=== PATIENT | female | born 2000 | race Caucasian/White ===

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

== ENCOUNTER 2025-07-20 11:58 | Emergency (ER) | payer OTHER, SELFPAY ==
[2025-07-20 12:48] VITALS: BP 101/75; PULSE 83; RESP 16; TEMP 36.4; O2SAT 100
--- NOTE | 2025-07-20 12:53 | ED.SKABFB ---
HPI - Skin/Abscess/Foreign Bdy General Chief complaint: Skin/Abscess/Foreign Body Stated complaint: ringworm Time Seen by Provider: 07/20/25 13:00 Source: patient Mode of arrival: ambulatory Limitations: no limitations History of Present Illness HPI narrative: Chiquis is a 25-year-old female patient presenting to the clinic today with complaints of ring that is spreading. She reports she was seen by a provider 2 weeks ago and diagnosed with a tinea corpus infection to the forehead. She reports she has been using topical treatment for that but now the rash is spreading to her arms, neck, chest, and abdomen. States is mildly itchy nonpainful Related Data Home Medications ?Medication ?Instructions ?Recorded ?Confirmed ?Last Taken ?Type medroxyprogesterone IM 07/20/25 Unknown History Allergies Allergy/AdvReac Type Severity Reaction Status Date / Time Penicillins Allergy Rash Verified 07/20/25 12:52 Review of Systems Review of Systems: Pertinent positives per HPI. Patient denies any fever, chills, headache, visual changes, dizziness, cough, runny nose, sore throat, shortness of breath, chest pain, palpitations, nausea, vomiting, diarrhea, constipation, abdominal pain, or any urinary issues. PMFSH Comments At the time of my signature, I reviewed and agree with the nursing past medical, surgical, social, and family history. There is no relevant family history pertinent to the patient complaint. Exam Narrative: General: Well-developed, well nourished, in no apparent distress Head: Normocephalic, atraumatic. Cardio: Regular rate and rhythm, s1 and s2 normal, no murmur appreciated. Resp: Clear to auscultation bilaterally, no rhonchi, rales, wheezing or rubs. Integumentary: [place], warm, and dry, red raised circular rash with scaliness and central clearing to forehead, neck, chest, abdomen, and bilateral arms Course Course Level of Care: Express Care Visit Vital Signs Vital signs: Vital Signs Temperature 36.4 C 07/20/25 12:48 Pulse Rate 83 07/20/25 12:48 Respiratory Rate 16 07/20/25 12:48 Blood Pressure 101/75 07/20/25 12:48 Pulse Oximetry 100 07/20/25 12:48 Temperature 36.4 C 07/20/25 12:48 Pulse Rate 83 07/20/25 12:48 Respiratory Rate 16 07/20/25 12:48 Blood Pressure 101/75 07/20/25 12:48 Pulse Oximetry 100 07/20/25 12:48 MDM MDM Narrative Medical decision making narrative: At the time of visit patient is resting comfortably on the exam table. Patient appears to be nontoxic. complaints of ring that is spreading. She reports she was seen by a provider 2 weeks ago and diagnosed with a tinea corpus infection to the forehead. She reports she has been using topical treatment for that but now the rash is spreading to her arms, neck, chest, and abdomen. States is mildly itchy nonpainful. On exam patient has red raised circular rash with scaliness and central clearing to forehead, neck, chest, abdomen, and bilateral arms. Plan: I suspect patient has worsening of tinea corpus. Prescription for ketoconazole shampoo and Diflucan was sent to the pharmacy. Recommend follow-up cargo operations agent Supportive measures were discussed with the patient and they voiced understanding discharge instructions and agrees to treatment plan. Return precautions reviewed Differential Diagnosis Differential Diagnosis: Differential diagnostic considerations for skin/abscess/foreign body issues include abscess of skin or subcutaneous tissue, viral exanthem, dermatophytosis, urticaria, herpes zoster, allergic reaction to drug, cellulitis, eczema, insect bites, impetigo, contact dermatitis, vasculitis. Discharge Plan Discharge Clinical Impression: Tinea corporis Patient Disposition: Home Condition: Stable Instructions: Antibiotic Form, Tinea Corporis (ED) Additional Instructions: Apply ketoconazole shampoo as directed Take Diflucan as prescribed Rash is considered contagious for 48 hours after the beginning of treatment Avoid scratching as this can cause a secondary infection May take benadryl 25-50mg every 6 hours as needed for itching. Follow up with your PCP in 3-5 days if symptoms persist or sooner if they worsen Go to the Emergency Room if symptoms worsen- fever, rash spreading with treatment ,shortness of breath, tongue swelling, drooling, or chest pain Patient Language: Chinese Prescriptions: New fluconazole 200 mg tablet 200 mg PO WEEKLY 28 Days Qty: 4 0RF ketoconazole 1 % shampoo 1 applic topical 2XW 28 Days Qty: 200 0RF No Action medroxyprogesterone [Depo-Provera] IM Follow-up/Referrals: PHYSICIAN,VALVE MECHANIC [Primary Care Provider, Internal Medicine] Time of Disposition: 12:57 Quality NIHSS Nursing Documentation ED NIHSS nursing documentation: reviewed/agree
== END 2025-07-20 13:03 | disposition home or self-care (01) ==
PROVIDERS: Emergency Provider Nurse Practitioner Family
DX: B35.4 Tinea corporis (principal)
CPT/HCPCS: 99213; G0463